=== PATIENT | female | born 1955 | race Caucasian/White ===

== ENCOUNTER 2020-09-04 19:31 | Outpatient (CLI) | payer MEDICARE, OTHER | END 2020-09-04 19:32 | disposition short-term general hospital (02) | LOC: EMS 19:31 | DX: S99.912A Unspecified injury of left ankle, initial encounter (principal); W01.0XXA Fall on same level from slipping, tripping and stumbling without subsequent striking against object, initial encounter | CPT/HCPCS: A0425; A0427 ==

== ENCOUNTER 2021-05-14 08:00 | Outpatient (CLI) | payer MEDICARE, OTHER | END 2021-05-14 23:59 | LOC: LAB.S 08:00 | PROVIDERS: ATTEND Emergency Medicine | DX: R05.1 Acute cough (principal); Z20.822 Contact with and (suspected) exposure to COVID-19 ==

== ENCOUNTER 2021-05-14 12:14 | Outpatient (CLI) | payer MEDICARE, OTHER ==
--- NOTE | 2021-05-14 14:02 | XRAY Report ---
PROCEDURE: Chest 2 View X-Ray INDICATIONS: Upper respiratory infection TECHNIQUE: 2 view(s) of the chest. COMPARISON: None. FINDINGS: Surgical changes and devices: None. Lungs and pleura: No pleural effusions or pneumothorax. Lungs are clear. Mediastinum: Mediastinal contours are normal. Heart size is normal. Bones and chest wall: No suspicious bony abnormalities. Soft tissues appear unremarkable. IMPRESSION: No acute cardiopulmonary process demonstrated radiographically. Reviewed by: Filipe Garcia MD on 05/14/2021 2:00 PM PDT Approved by: Fiilpe Garcia MD on 05/14/2021 2:00 PM PDT Station ID: [id number]
== END 2021-05-14 23:59 | disposition home or self-care (01) ==
LOC: DI.S 12:14
PROVIDERS: ATTEND Emergency Medicine
DX: J06.9 Acute upper respiratory infection, unspecified (principal); R05.1 Acute cough; Z20.822 Contact with and (suspected) exposure to COVID-19
CPT/HCPCS: 71046; U0004

== ENCOUNTER 2021-07-11 08:00 | Outpatient (CLI) | payer MEDICARE, OTHER | END 2021-07-11 23:59 | disposition home or self-care (01) | LOC: LAB.S 08:00 | PROVIDERS: ATTEND Physician Assistant Medical | DX: J06.9 Acute upper respiratory infection, unspecified (principal); Z20.822 Contact with and (suspected) exposure to COVID-19 ==